=== PATIENT | female | born 2005 | race Caucasian/White ===

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

== ENCOUNTER 2023-10-03 14:07 | Emergency (ER) | payer MEDICAID, SELFPAY ==
[2023-10-03 14:10] VITALS: BP 140/72; PULSE 83; RESP 18; TEMP 36.2; O2SAT 100; BMI 23.8
--- NOTE | 2023-10-03 14:51 | US_ITS ---
INDICATION: preg and bleeding EXAMINATION: US OB Transvaginal TECHNIQUE: Transvaginal (for optimal evaluation of the adnexa) pelvic ultrasound was performed. Grayscale, spectral waveform, and color flow Doppler evaluation of the adnexa. COMPARISON: None. FINDINGS: UTERUS: Measures 7.8 x 5.3 x 3.7 cm. RIGHT OVARY: Measures 3.3 x 2.2 x 2.3 cm. Normal. LEFT OVARY: Measures 3.4 x 2 x 1.3 cm. Normal. FREE FLUID: Mild to moderate volume simple fluid in the cul-de-sac. INTRAUTERINE GESTATIONAL SAC(s) (size/shape): Not visualized. No adnexal ectopic visualized. US/Transvaginal w/Preg US IMPRESSION: of unknown location. No intrauterine gestational sac or adnexal ectopic visualized. Recommend serial beta hCGs and follow-up OB ultrasound in 1-2 weeks. Electronically Signed: Shmuel Frederick MD at 16:52 EST ,
--- NOTE | 2023-10-03 14:53 | ED.VIS.FEGU ---
HPI HPI - Female History of Present Illness Chief Complaint: Vag Bld, Preg Detail of Chief Complaint: First trimester and bleeding. Informant: patient Pain Pain: Positive for Pelvic Pain Onset: Today and Yesterday Timing: Intermittent Quality: Positive for Cramping Current Severity: Mild Maximum Severity: Mild Bleeding Issue: Positive for Vaginal bleeding Onset: Today and Yesterday Timing: Intermittent Current Severity: Spotting Associated Symptoms Associated Symptoms: Negative for Dysuria, Frequency or Urgency Test: Positive Sexually: Positive for Active Control: No control P: 0 Ab: 2 Narrative Narrative: 18-year-old female Ab2 with there was being 2 miscarriages. The most recent 1 in June. States her last normal menstrual period was the first week of July she had an abnormal menstrual period in August. Thinks she is around 4 to 5 weeks . Last night and today started having pelvic cramping and spotting. No heavy bleeding. No clots. Only mild discomfort. No dysuria or fever. Prior similar symptoms: Yes Recent Illness/Hospitalization: No PFSH PFSH Medical History Miscarriage Home Medications fluoxetine 20 mg capsule 20 mg PO DAILY 01/13/17 [History Last Taken 01/13/17] Allergy/AdvReac Type Severity Reaction Status Date / Time No Known Allergies Allergy Verified 10/03/23 14:09 Family History no significant family his Social History housing: apartment Smoking Status: Never smoker ROS ROS ED ROS Narrative Denies recent illness. Review of Systems ROS Unobtainable: Denies due to encephalopathy Constitutional Constitutional ED: Denies chills or fever(s) Eyes Eyes: Denies blurry vision ENT ENT ED: Denies ear pain Cardiovascular Cardiovascular: Denies chest pain or palpitations Respiratory/Chest Respiratory/Chest: Denies cough or dyspnea Gastrointestinal Gastrointestinal: Denies abdominal pain Genitourinary Genitourinary ED: Denies dysuria or hematuria Musculoskeletal Musculoskeletal: Denies arthralgias or myalgias Integumentary Denies abscess or Abrasions Neurologic Neurologic: Denies headache(s) or paresthesias Psychiatric Psychiatric: Denies anxiety or depression Endocrine Endocrinology: Denies heat intolerance or polydipsia Hematologic/Lymphatic Hematologic/Lymphatic: Denies easy bleeding or easy bruising Allergic/Immunologic Allergic/Immunologic ED: Denies mouth swelling or tongue swelling EXAM Physical Exam Narrative Exam Narrative: 18-year-old female no acute distress vital signs stable afebrile. HEENT exam normal. Lungs clear. Heart regular rhythm. Abdomen soft, nontender, nondistended normal bowel sounds no peritoneal signs. Moving all 4 extremities. Nontender no edema. Neurologically awake and alert no focal motor deficits. Benign exam. Const Vital Signs: 10/03/23 14:10 10/03/23 14:29 Temperature 97.1 F L Temperature Source Temporal Pulse Rate 83 Respiratory Rate 18 Respiratory Effort Normal Blood Pressure 140/72 H Blood Pressure Mean 94 Pulse Ox 100 Oxygen Delivery Method Room Air Positive well nourished and well developed; Negative for obese, cachectic, contractures or unkempt General Appearance ED: well developed and NAD; Negative for unkempt, cachectic, contractures or pallor Nutritional Appearance: Negative for cachectic or obese HEENT Reports moist mucous membranes Negative for trauma or tenderness Eyes PERRL and EOMs intact bilaterally General Eye ED: Negative for pale conjunctiva or scleral icterus Neck no lymphadenopathy, supple and no JVD General: Negative for other Thyroid: Negative for tender Lymph Lymphatic: Negative for other Chest Wall inspection of chest normal and palpation of chest normal Chest: Negative for other Resp normal respiratory effort and clear to auscultation bilaterally Effort and Inspection: Negative for pain with movement Auscultation: Negative for rales, rhonchi, wheezes or diminished lung sounds Cardio regular rate, regular rhythm, S1 normal heart sound, no murmurs and no JVD Rate: Negative for bradycardia or tachycardic GI normal to inspection, nondistended, normoactive bowel sounds, soft to palpation, non-tender, non-distended and no masses Auscultation: normoactive bowel sounds Palpation: Negative for tender, guarding or rigid Back/Spine no CVA tenderness General Back: Negative for CVA tenderness Cervical Spine: Negative for cervical spine tenderness Thoracic Spine / Upper Back: Negative for thoracic spinal tenderness Lumbar Spine / Lower Back: Negative for lumbar spinal tenderness Sacrum: Negative for other Extremity normal to inspection and full ROM General Extremety ED: Negative for edema or tenderness General Extremity: Negative for edema Neuro oriented x3 and CN's II-XII intact bilaterally Sensorium / Orientation: alert, oriented to person, oriented to place and oriented to time; Negative for confused, lethargic or stuporous Motor Exam: strength 5/5 throughout; Negative for general weakness Psych mental status grossly normal Appearance: Negative for unkempt Attitude: No agitated Speech: No other Mood & Affect: Negative for depressed, anxious or tearful Skin no rashes or lesions noted and no wounds General Skin Exam: Negative for jaundice or pallor Rashes: No rashes noted Trauma: Negative for other MDM MDM MDM Narrative Medical decision making narrative: 18-year-old female 3 total pregnancies 2 prior miscarriages and currently in her first trimester with bleeding. Differential would include with bleeding versus miscarriage versus ectopic. Ultrasound and labs are being obtained. We have no prior labs on her. Repeat exam patient doing well at 5:10 PM. Her abdomen is completely benign. Currently she is having no pain. She and I discussed all of her test results lab work and the ultrasound. She had a quant done yesterday which initially she did not tell me it was in the 30s so it is going up. I spoke to the nurse commercial crabber at the [facility]. They will get serial quant's in 48 hours at their office and follow the patient up. The patient understands this could be an early with some bleeding versus a threatened miscarriage versus even an ectopic but currently she is having no pain on repeat abdominal exam she is completely pain-free. She was offered a pelvic but deferred at this time. She will follow-up with the [facility] on Sunday to have a repeat quant. History & Record Review Additional record(s) reviewed:: No prior records Lab Data Attestation: I reviewed the patient's lab results. Lab results narrative: Urine showed 25-50 red cells. No white cells. No nitrates. No bacteria. No infection. Blood type B+. Quantitative hCG is only 43. Ultrasound was basically unremarkable. With a quant of 43 it is not surprising they did not see any type of intrauterine . Labs: Laboratory Results - last 24 hr 10/03/23 15:06 HCG, Quant 43 H Urine Color Yellow Urine Clarity Sl. Cloudy Urine pH 7.0 Ur Specific [place] 1.005 Urine Protein Negative Urine Glucose (UA) Normal Urine Ketones Negative Urine Occult Blood 250 H Urine Nitrite Negative Urine Bilirubin Negative Urine Urobilinogen Normal Ur Leukocyte Esterase Negative Urine RBC 25-50 SEEN Urine WBC 0 SEEN Ur Squamous Epith Cells 0-5 SEEN Urine Bacteria 0 SEEN Urine Mucus 0 SEEN Blood Type B POSITIVE Radiography Diagnostic Testing: Clinical Impression(s) from Imaging Studies Obstetrics Ultrasound 10/03/23 14:51 IMPRESSION: of unknown location. No intrauterine gestational sac or adnexal ectopic visualized. Recommend serial beta hCGs and follow-up OB ultrasound in 1-2 weeks. Electronically Signed: Shmuel Frederick MD at 16:52 EST , Discharge Plan Triage Chief Complaint: Vag Bld, Preg Other Complaint: Chest Pain ED Provider: Mandeep Estrada Dx/Rx/DC Orders Clinical Impression: Threatened miscarriage, History of miscarriage, First trimester , Vaginal bleeding Instructions: Miscarriage Threatened Prescriptions: No Action fluoxetine 20 MG capsule 20 mg PO DAILY Primary Care Provider: Nat Grimaldo Referrals: Nat Grimaldo, [Primary Care Provider] - As soon as possible (Call their office tomorrow. They will set you up to have a repeat quantitative hCG to be done on Sunday.) Activity Restrictions/Additional Instructions: No lifting or intercourse. Tylenol for pain. Follow-up with your [facility] office. They will get a repeat quantitative hCG on Sunday. You may have some additional bleeding. If you have really heavy bleeding and clots or severe pain you need to be reevaluated. At this time this could be an early with some bleeding. Obviously could be another threatened miscarriage. Could even be an ectopic but you do not have any signs of that. Disposition Disposition: Home, Self Care
[2023-10-03 15:11] LABS: Bacteria 0 SEEN /hpf (None Seen); Mucous, Urine 0 SEEN /hpf (<or=2+); White Blood Cells 0 SEEN /hpf (0-5)
[2023-10-03 15:20] LABS: Color, Urine Yellow (Yellow); Glucose, Dipstick Normal (Normal); Ketone-Dipstick Negative (Negative); Leukocyte Esterase-Dipstick Negative /ul (Negative); Nitrite-Dipstick Negative (Negative); Occult Blood-Urine 250 /ul (Negative); Protein-Dipstick Negative (Negative); Specific Gravity, Urine 1.005 (1.002-1.030); Urine Bilirubin Dipstick Negative (Negative); Urine Clarity Sl. Cloudy (Clear); Urine Urobilinogen Normal (Normal)
[2023-10-03 15:31] LABS: Red Blood Cells-Urine 25-50 SEEN /hpf (0-5); Squamous Epithelial Cells - UA 0-5 SEEN /hpf (5-10)
[2023-10-03 16:04] LABS: hCG Titer Quant., Serum 43 mIU/mL (1-3)
[2023-10-03 17:22] VITALS: BP 132/74; PULSE 98; RESP 16; TEMP 36.8; O2SAT 99
== END 2023-10-03 17:23 | disposition home or self-care (01) ==
PROVIDERS: Emergency Provider Emergency Medicine; PCP Obstetrics & Gynecology; Visit Provider Emergency Medicine
DX: O20.0 Threatened abortion (principal); Z3A.01 Less than 8 weeks gestation of pregnancy; Z87.59 Personal history of other complications of pregnancy, childbirth and the puerperium
CPT/HCPCS: 76817; 81001; 84702; 86900; 86901; 99284

== ENCOUNTER 2023-11-08 09:28 | Day surgery (SDC) | payer MEDICAID, SELFPAY ==
--- NOTE | 2023-11-07 14:08 | PCM.HP.BLA ---
History and Physical Date of Admission: 11/08/23 Pre-Op History and Physical HPI: The patient is a 18 year old female presenting for pre-operative visit. She is scheduled for Suction D&C, for missed ab on 11/08/23. Procedure discussed along with risks, benefits and complications. Other alternatives discussed for management. Consent form signed? No. PAST MEDICAL HISTORY Diagnosis Date ? Anxiety state ? Chest pain 10/12/2023 ? Depression ? Endometriosis ? PTSD (post-traumatic stress disorder) ? Sinus arrhythmia PAST SURGICAL HISTORY Procedure Laterality Date ? D&C, DIAG AND/OR THERAPEUTIC 02/23/2023 ? D&C, DIAG AND/OR THERAPEUTIC 03/02/2023 ? PAST SURGICAL HISTORY OF Tonsilectomy at Age 13 Current Outpatient Medications Medication Sig Dispense Refill ? prental multivitamin 27 mg iron- 800 mcg tablet Take 1 tablet by mouth once daily. No current facility-administered medications for this visit. ALLERGIES: Patient has no known allergies. PERSONAL HISTORY: Social History Tobacco Use ? Smoking status: Never ? Smokeless tobacco: Never Vaping Use ? Vaping Use: current everyday user ? Substances: Nicotine, Flavoring ? Devices: Disposable Substance Use Topics ? Alcohol use: Not Currently ? Drug use: Not Currently Types: Marijuana Comment: Quit for FAMILY HISTORY: FAMILY HISTORY Problem Relation Age of Onset ? Drug abuse Mother ? Drug abuse Father ? No Known Problems Sister ? No Known Problems Sister ? No Known Problems Brother ? No Known Problems Brother ? No Known Problems Maternal Grandmother ? Heart Maternal Grandfather ? No Known Problems Paternal Grandmother ? No Known Problems Paternal Grandfather REVIEW OF SYMPTOMS: negative except as noted above PHYSICAL EXAMINATION: VITALS: Last menstrual period 09/01/2023. GENERAL: The patient is well nourished, well hydrated in no acute distress. , The patient is oriented to time, place, and person. NECK: full range of motion IMPRESSION: 18yo with Missed ab approximately 9 weeks by LMP PLAN: suction D&C Pt has been counseled on risks/benefits and alternatives of surgery including but not limited to anesthesia, bleeding, infection, uterine perforation injury to pelvic structures including bowel, bladder, ureters and vessels. Pt wishes to proceed with surgery at this time. Pt counseled that based on ultrasound findings since october 18, 2023 again on 11/01/23 and 11/06/23 findings are consistent with missed . Pt called the office after hours to notify that she would like to proceed with surgical intervention after discussion all options I have reviewed and updated past medical and surgical history, medications and allergies Jael Woodruff MD
[2023-11-08] VITALS (12 sets, daily range): BP systolic 79–107; BP diastolic 44–71; PULSE 47–75; RESP 16–166; TEMP 36.5–36.6; O2SAT 96–100; BMI 23.5
[2023-11-08] MEDS: Lactated Ringers 1,000 ML 15 ML IV (10:01)
--- NOTE | 2023-11-08 11:00 | POC_PTH ---
PATIENT: LISBET DAVIDSON LOC: [facility] [place] U#:[id number] AGE/SX: 18/F ROOM: RE11/08/[address]: Dr. Jael Owen, MDDOB: 2005 BED: DIS: 11/08/2023 SPEC #: [id number] RECD: 11/08/23 11:46 STATUS: [place] AFIA #: [id number] JOAQUIN: 11/08/23 11:[address]: Jael Owen DEPT: SURGICAL PATHOLOGY RECD BY: Fanny Lopez ENTERED: 11/08/23 13:27 SP TYPE: PROD CONC OTHR DR: No Primary Care Phys Tissues: Product of conception, NOS Procedures: Surgery Specimen Level IV HEADER OPERATION: Dilation and Curettings, Suction PRE-OP DIAGNOSIS: Missed TISSUE SUBMITTED: Products of conception- Anora testing MICROSCOPIC DIAGNOSIS Products of conception, dilation and curettage: Decidua and immature chorionic villi (products of conception), clinically incomplete . See comment. RED: 11/09/23 COMMENT Results of Anora study will be reported as an addendum. MICROSCOPIC DESCRIPTION Slides are reviewed. GROSS DESCRIPTION Received without fixative is one container labeled with the patient's name and designated Products of conception. The specimen consists of multiple fragments of pink-red soft tissue measuring in aggregate 1.0 x 1.0 x 0.2cm. Portion of the specimen is submitted for Anora study. The rest of the specimen is submitted in one cassette. RED/ 11/08/23 TC:5 CPT: 53775
--- NOTE | 2023-11-08 11:35 | DCINST_ITS ---
Discharge Instructions Diet Discharge Diet: No restrictions Activity May resume sexual activity in: 1 week Dressing / Incision Call your doctor if you observe: Fever of 101 or Higher, Inability to urinate, Using more than 1 pad per hour and Uncontrolled pain Follow Up Care Please Follow Up With: Jael Woodruff MD When: 1-2 weeks post OP if you need an appointment please call [phone] Test Results: Test results from this visit will be discussed in further detail at your follow- up appointment, if applicable. Discharge Plan Admission Attending Provider: Jael Woodruff Primary Care Provider: Care Physician,Hollie Primary Discharge Orders/Prescriptions Prescriptions: No Action NK Referrals / Follow Up: Care Physician,No Primary [Primary Care Provider] - Disposition Disposition (needs filled in before D/C Order can be placed): Home, Self Care
--- NOTE | 2023-11-08 11:35 | OP.PCM_ITS ---
Report of Operation Date of Procedure: 11/08/23 Pre-Operative Diagnosis: Missed - Post-Operative Diagnosis: same Surgery/Procedure Performed:: Suction D&C Description of Surgical Findings:: 7 brit[place] island[place] suction catheter used, anora testing sent Surgeon: Jael Woodruff oriental rug repairer: None Type of Anesthesia: MAC Special Medications: none Specimen's removed: products of conception Estimated Blood Loss (mL): <5cc Fluids Replaced: 700cc Description of Procedure: After informed consent was obtained patient was taken to OR and placed in supine position. Anesthesia was given. patient was placed in yellow fin stirrups and prepped and draped in normal sterile fashion. bladder was drained with straight catheter with approximately 50cc of clear yellow urine expelled. Weighted speculum placed in posterior fornix of vaginal, single tooth tenaculum was used to gently grasped anterior lip of cervix. . Cervix was then gently dilated in an incremental fashion. Was adequate dilation was achieved the 7 brit[place] islander suction catheter was placed. suction curettage performed until no tissue was expelled and cavity was deemed empty. The tissue was then sent for anora testing per patient request. No complications. At this time procedure was deemed complete and successful. Tenaculum removed, speculum removed. Good hemostasis appreciated. Vaginal sweep was negative. Instrument and lap count correct x 2. I anticipate normal postoperative course. Grafts/Implants Used: none Procedure Start Time: 11:30 Procedure Stop Time: 11:34 Complications none Admit VTE Documentation VTE Present on Admission: Yes VTE Mechan Device Prophylaxis: SCD's VTE Pharm Prophylaxis ordered?: No Reason prophylaxis not ordered:: Procedure Not Indicated
[2023-11-08] MEDS: Oxycodone/Apap 5/325 Tablet PO (13:15)
== END 2023-11-08 13:45 | disposition home or self-care (01) ==
LOC: SDC 09:31 → AC 09:32
PROVIDERS: Referring Provider Obstetrics & Gynecology; Visit Provider Obstetrics & Gynecology
PROC: (CPT 59820; principal; 2023-11-08 10:45)
DX: O02.1 Missed abortion (principal); Z86.79 Personal history of other diseases of the circulatory system; Z90.89 Acquired absence of other organs; Z3A.09 9 weeks gestation of pregnancy; O99.331 Smoking (tobacco) complicating pregnancy, first trimester; F17.290 Nicotine dependence, other tobacco product, uncomplicated; O99.321 Drug use complicating pregnancy, first trimester; F12.10 Cannabis abuse, uncomplicated
CPT/HCPCS: 59820; 01965; 88305; J7120; J2405